=== PATIENT | female | born 1970 | race Two or more races ===

== ENCOUNTER 2017-03-17 09:22 | Day surgery (SDC) | payer OTHER ==
[~2017-03-17 09:22] MED LIST: AMBIEN10 MG PO; B12 5,000 MCG1 EACH SL; CYMBALTA60 MG PO; FOLIC ACID1 MG PO; HYDROXYCHLOROQ200 MG PO; HYDROXYCHLOROQUINE PO; METHOTREXATE2.5 MG PO; MILLIPRED DP5 MG PO; NABUMETONE500 MG PO; PERCOCET 5/3251 TAB PO; PROZAC20 MG PO; SEROQUEL25 MG PO; TRANXENE T-TAB7.5 MG PO; VASOTEC20 M1 PO
== END 2017-03-17 14:30 | disposition home or self-care (01) ==
LOC: AMB-ENDOS 09:22
DX: K64.2 Third degree hemorrhoids (principal); K92.1 Melena; Z80.0 Family history of malignant neoplasm of digestive organs

== ENCOUNTER → 2020-02-19 | Outpatient (CLI) | payer OTHER | END | disposition home or self-care (01) | LOC: TOM 12:15 | PROVIDERS: ATTEND Orthopaedic Surgery | DX: M25.561 Pain in right knee (principal) ==

== ENCOUNTER 2020-06-23 10:30 | Inpatient (IN) | payer OTHER ==
[~2020-06-23] VITALS: Ht 162.6 cm; Wt 81.6 kg
[2020-06-29] MEDS ORDERED: MEDROLPACK PO (11:29)
[2020-06-29] MEDS ORDERED: COLACE100 MG PO (11:30)
[2020-06-29] MEDS ORDERED: DIAZEPAM5 MG PO (11:31)
[2020-06-29] MEDS ORDERED: PERCOCET 5-3251 EACH PO (11:31)
== END 2020-06-30 14:53 | disposition home or self-care (01) | DRG 473 ==
LOC: SURH 06-29 07:25 → O/R 06-29 07:25 → SURH 06-29 10:30
PROVIDERS: ADMIT Orthopaedic Surgery Orthopaedic Surgery of the Spine; ATTEND Orthopaedic Surgery Orthopaedic Surgery of the Spine
PROC: XRG20F3 Fusion of 2 or more Cervical Vertebral Joints using Radiolucent Porous Interbody Fusion Device, Open Approach, New Technology Group 3 (ICD-10-PCS; 2020-06-29)
PROC: 07DS3ZZ Extraction of Vertebral Bone Marrow, Percutaneous Approach (ICD-10-PCS; 2020-06-29)
PROC: 0RT30ZZ Resection of Cervical Vertebral Disc, Open Approach (ICD-10-PCS; principal; 2020-06-29 18:15)
DX: M50.021 Cervical disc disorder at C4-C5 level with myelopathy (principal); M48.02 Spinal stenosis, cervical region; I10 Essential (primary) hypertension